=== PATIENT | female | born 1985 | race Caucasian/White ===

== ENCOUNTER 2018-07-13 15:57 | Inpatient (IN) | payer BC ==
--- OUTSIDE RECORDS SUMMARY | 2018-07-13 15:58 | XMS REPORT ---
:1985 Author Organization eClinicalWorks Care Team Providers Name Role Phone Wild Baltazar Provider Role Unavailable Allergies No Known Allergies Problems No Known Problems Medications Medication Code Code Instructions Start End Status Dosage System Date Date Bill Artisedenilson [facility] 37391832685 10-0.6-0.4-200 Jan 19, Active 1 capsule MG Orally Once a 2017 Results No Known Results Summary Purpose eClinicalWorks Submission
--- OUTSIDE RECORDS SUMMARY | 2018-07-13 15:58 | XMS REPORT ---
:1985 Author Organization eClinicalWorks Care Team Providers Name Role Phone Wild Baltazar Provider Role Unavailable Allergies No Known Allergies Problems Problem Type Condition Code Onset Dates Condition Status Problem History of pre-eclampsia in prior O09.299 Active , currently Problem Encounter for supervision of other Z34.82 Active normal in second trimester Problem Needs flu shot Z23 Active Assessment History of pre-eclampsia in prior O09.299 Active , currently Assessment Needs flu shot Z23 Active Assessment Encounter for supervision of other Z34.82 Active normal in second trimester Medications Medication Code Code Instructions Start End Status Dosage System Date Date Prenate Steffedenilson [facility] 72182241399 10-0.6-0.4-200 Jan 19, Active 1 capsule MG Orally Once a [address] [facility] 73748601162 25 MG Orally Active 1 tablet Once a day Results No Known Results Immunizations Vaccine Administration Date Afluria Mar 22, 2018 Summary Purpose eClinicalWorks Submission
--- OUTSIDE RECORDS SUMMARY | 2018-07-13 15:58 | XMS REPORT ---
:1985 Author Organization eClinicalWorks Care Team Providers Name Role Phone Wild Baltazar Provider Role Unavailable Allergies, Adverse Reactions, Alerts Substance Reaction Event Type Nickel Info Not Available Non Drug Allergy Problems Problem Type Condition Code Onset Dates Condition Status Problem Encounter for supervision of other Z34.82 Active normal in second trimester Problem History of pre-eclampsia in prior O09.299 Active , currently Assessment Encounter for supervision of other Z34.82 Active normal in second trimester Assessment History of pre-eclampsia in prior O09.299 Active , currently Medications Medication Code Code Instructions Start End Status Dosage System Date Date Zoloft [facility] 37607287629 25 MG Orally Active 1 tablet Once a day Prenate Lea [facility] 17927947777 10-0.6-0.4-200 Jan 19, Active 1 capsule MG Orally Once a 2017 day Results No Known Results Summary Purpose eClinicalWorks Submission
--- OUTSIDE RECORDS SUMMARY | 2018-07-13 15:58 | XMS REPORT ---
:1985 Author Organization eClinicalWorks Care Team Providers Name Role Phone Wild Baltazar Provider Role Unavailable Allergies, Adverse Reactions, Alerts Substance Reaction Event Type Nickel Info Not Available Non Drug Allergy Problems Problem Type Condition Code Onset Dates Condition Status Assessment Encounter for supervision of other Z34.81 Active normal in first trimester Assessment Amenorrhea N91.2 Active Assessment Encounter for supervision of Z34.91 Active low-risk in first trimester Assessment Encounter to determine O36.80X0 Active viability of , single or unspecified fetus Medications Medication Code System Code Instructions Start Date End Date Status Dosage Zoloft [facility] 33968988860 25 MG Orally Once Active 1 tablet a day Results Name Result Date Reference Range Unit Abnormality Flag URINALYSIS AUTO W/O SCOPE (46734) ----NIT neg 20180116 ----URO 0.2 20180116 ----PROTEIN neg 20180116 ----pH 7.0 20180116 ----BLO neg 20180116 ----GLUCOSE neg 20180116 ----HARRY neg 20180116 ----BILIRUBIN neg 20180116 ----KETONES neg 20180116 ----SPECIFIC GRAVITY 1.015 20180116 Summary Purpose eClinicalWorks Submission
--- OUTSIDE RECORDS SUMMARY | 2018-07-13 15:58 | XMS REPORT ---
:1985 Author Organization [employer]ClinicalLinkedwith Care Team Providers Name Role Phone Wild Baltazar Provider Role Unavailable Allergies No Known Allergies Problems Problem Type Condition Code Onset Dates Condition Status Problem Encounter for supervision of other Z34.82 Active normal in second trimester Problem History of pre-eclampsia in prior O09.299 Active , currently Medications No Known Medications Results No Known Results Summary Purpose [facility] Submission
--- OUTSIDE RECORDS SUMMARY | 2018-07-13 15:59 | XMS REPORT ---
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.29 Active affecting fetus Assessment Encounter for supervision of other Z34.83 Active normal in third trimester Assessment History of pre-eclampsia in prior O09.299 Active , currently Problem Encounter for supervision of other Z34.82 Active normal , second trimester Problem Placenta succenturiate lobe P02.29 Active affecting fetus Problem Encounter for supervision of other Z34.83 Active normal in third trimester Problem Encounter for supervision of other Z34.82 Active normal in second trimester Problem Needs flu shot Z23 Active Problem History of pre-eclampsia in prior O09.299 Active , currently Medications Medication Code Code Instructions Start End Status Dosage System Date Date Zoloft [facility] 42963553369 25 MG Orally Active 1 tablet Once a day Prenate Lea [facility] 25570362331 10-0.6-0.4-200 Jan 19, Active 1 capsule MG Orally Once a 2017 day Results No Known Results Summary Purpose eClinicalWorks Submission
--- OUTSIDE RECORDS SUMMARY | 2018-07-13 15:59 | XMS REPORT ---
[...] End Status Dosage System Date Date Prenate Lea [facility] [id number] 10-0.6-0.4-200 Jan 19, Active 1 capsule MG Orally Once a 2017 day Zoloft [facility] [place] 29399306634 25 MG Orally Active 1 tablet Once a day Results No Known Results Summary Purpose eClinicalWorks Submission
--- OUTSIDE RECORDS SUMMARY | 2018-07-13 15:59 | XMS REPORT ---
:1985 Author Organization eClinicalWorks Care Team Providers Name Role Phone Wild Baltazar Provider Role Unavailable Allergies No Known Allergies Problems Problem Type Condition Code Onset Dates Condition Status Assessment Encounter for supervision of other Z34.82 Active normal , second trimester Problem Encounter for supervision of other [...] Medications Results No Known Results Summary Purpose [facility] Submission
--- OUTSIDE RECORDS SUMMARY | 2018-07-13 15:59 | XMS REPORT ---
[...] Medications Results No Known Results Summary Purpose [facility] Submission
--- OUTSIDE RECORDS SUMMARY | 2018-07-13 15:59 | XMS REPORT ---
[...] Medications Results No Known Results Summary Purpose eClinicalWorks Submission
--- NOTE | 2018-07-13 18:07 | RAD REPORT ---
EXAM DESCRIPTION: US - Biophysical Profile - 07/13/2018 5:57 pm CLINICAL HISTORY: COMPARISON: June 28, 2018 FINDINGS: Single live intrauterine is in cephalic presentation. Cervix measures 3.1 centimeters. Cardiac activity 151 beats per minute. Biophysical profile tone 2 Movement 2 Breathing 2 Amniotic fluid 2 Amniotic fluid index equals 8 cm (6.6-27). Largest pocket of fluid 3.4 centimeters. Amniotic fluid is lower limits of normal IMPRESSION: Normal biophysical profile 8 of 8
[2018-07-13] MEDS ORDERED: METHYLERGONOVINE 0.2MG/ML AMP IM PRN (18:29)
[2018-07-13] MEDS ORDERED: Ringers Lactate 1,000 ML IV PRN (18:29)
[2018-07-13] MEDS ORDERED: CARBOPROST TROME 250 MCG/ML IM PRN (18:29)
[2018-07-13 18:38] VITALS: BMI 27.1
[2018-07-13 18:46] LABS: RPR Titer ND
[2018-07-13 18:52] LABS: Absolute Lymphocytes (CBC) 2.8 K/uL (0.7-4.9); Absolute Monocytes 0.7 K/uL (0.1-1.3); Absolute Neutrophil 3.8 K/uL (1.8-8.0); Basophils % 0.5 % (0-1.3); Eosinophils % 0.4 % (0-4.4); Lymphocytes % 38.2 % (15.3-44.8); MPV 10.4 fL (7.6-11.3); RBC Red Blood Cell Count 4.55 M/uL (3.86-4.86)
[2018-07-13] MEDS ORDERED: OXYTOCIN/LR 20 UNIT/1,000 ML BAG IV SCH (19:00)
[2018-07-13] MEDS ORDERED: Ringers Lactate 1,000 ML IV SCH (19:00)
[2018-07-13] MEDS ORDERED: FENTANYL CITR 100 MCG/2 ML IV ONE (19:54)
[2018-07-13] MEDS ORDERED: ROPIVACAINE HCL 100 ML IV PRN (19:54)
[2018-07-13] MEDS ORDERED: ROPIVACAINE HCL 0.2% 20ML AMP SQ ONE (19:58)
[2018-07-13] MEDS ORDERED: PROMETHAZINE 25 MG/ML VIAL IV PRN (22:36)
[2018-07-13 22:43] LABS: RPR (Rapid Plasma Reagin) NON-REACT (NON-REACT)
[2018-07-13] MEDS ORDERED: LIDOCAINE 2% INJ, 20 mL 20 ML ONE (23:21)
[2018-07-13] MEDS ORDERED: ACETAMINOPHEN 500 MG TAB PO PRN (23:26)
[2018-07-13] MEDS ORDERED: DOCUSATE NA/SENNA CONC 1 TAB PO PRN (23:26)
[2018-07-13] MEDS ORDERED: BISACODYL 10 MG RECTAL SUPP RECT PRN (23:26)
[2018-07-13] MEDS ORDERED: ONDANSETRON 4 MG (ODT) TAB PO PRN (23:26)
[2018-07-13] MEDS ORDERED: Oxycodone HCl/Acetaminophen 1 TAB TAB PO PRN (23:26)
[2018-07-13] MEDS ORDERED: METHYLERGONOVINE 0.2 MG TAB PO PRN (23:26)
--- NOTE | 2018-07-13 23:35 | P.OP ---
Date of Service: 07/13/18 Findings and Operative Technique Patient delivered a viable female in cephalic presentation on 07/13/17 at 23:05. Infant was delivered over a midline episiotony and was noted to have a nuchal cord x1. Nuchal was manually reduced. Cord was clamped and cut and infant was placed on mother's abdomen for skin to skin bonding. Attention was then turned to the placenta. Cord blood was obtained. Placenta was then delivered with gentle traction. Placenta was then examined and accessory lobe was present. Uterus was then massaged and found to be firm. Attention was then turned to the episiotomy which was repaired with a 2.0 vicryl in usual fashion and was noted to be a first degree. Patient tolerated well. APGARS were 8/9. Weight was 5 lb 4 ounces. First stage of labor was 8 hours and 2 minutes. Second stage was 7 minutes. Both mom and baby are doing well.
--- NOTE | 2018-07-14 05:04 | HP ---
Date of Admission: 07/13/2018 History Of Present Illness: Gustabo is a 32-year-old 2, para 1-0-0-1, who presents to labor and delivery at 36 weeks and 6 days' gestation with spontaneous rupture of membranes. The patient was a t lunch today with one of her friends; and then around 3:15, she felt a gush of fluid from her vagina . She thought that she may have to go use the bathroom and that it was only urine; however, it evan nued to leak. She then presented to Labor and Delivery. Upon initial assessment, the Nitrazine test was negative. Therefore, an ultrasound was ordered. Ultrasound revealed an JAVIER of 8. The patient last had an ultrasound on June 28, at which time the JAVIER was 9.8; however, Nitrazine test was th en repeated; and at that point, it was positive, and there was also fluid noted within the vaginal va ult. She is 1 to 2 cm dilated, 50% effaced, -3 station. The patient has obtained care with me, beginning at 11 weeks' gestation. She has been compliant with all visits. The patient has a history of preeclampsia in her last . Therefore, she has been seen by M. MFM plac ed her on baby aspirin. She just completed baby aspirin last week. They also found that on her ultr asound, the placenta was found to have an accessory lobe. We will assess for this when the baby is b orn as well as a velamentous cord insertion. Majority of the placenta is anterior, and there is post erior succenturiate lobe. The patient is Rh positive. GBS swab was done on July 05. It was ne guido. She received her Tdap vaccine in June 2016. Glucose screen was done and was found to be elevated. A 3-hour glucose test was then done and was negative. Noninvasive testing reveal ed low-risk female . She is rubella immune, varicella immune. Past Medical History: Negative. Past Surgical History: Negative. Family History: Significant for diabetes, hypertension, heart disease, high cholesterol, and anxiety . Social History: She is . Denies tobacco, alcohol, or drug use. Physical Examination: Vital Signs: On admission, blood pressure of 122/91, pulse of 89, respirations 18, and the patient i s afebrile. General: The patient is resting in bed, tearful. Head and Neck: Normocephalic and atraumatic. Heart: Regular rate and rhythm. Respiratory: Symmetric, nonlabored breathing. Abdomen: Gravid. Bilateral Lower Extremities: No clubbing, cyanosis, or edema. Vaginal Examination: Normal external female genitalia. Vagina is pink, moist. Normal rugae. Clear fluid noted within the vaginal vault. Cervix examined and noted to be 1 to 2 cm dilated, 50% efface d, -3 station, vertex presentation. Assessment And Plan: Gustabo is a 32-year-old 2, para 1-0-0-1, at 36 weeks and 6 days' gestatio n with spontaneous rupture of membranes. Pitocin will be started for labor augmentation. Her prenat al care is complicated by history of prior preeclampsia. With this , she has a velamentous cord and accessory lobe on her placenta. She has completed low-dose baby aspirin for this . Currently, is not exhibiting signs of preeclampsia. We will continue to monitor. Continuous -maternal monitoring will be performed. The patient may receive epidural at her request. GBS is neg ative. No penicillin is needed. /SUSANNE Voice ID: [id number]
[2018-07-14 06:33] LABS: Absolute Lymphocytes (CBC) 2.9 K/uL (0.7-4.9); Absolute Monocytes 1.3 K/uL (0.1-1.3); Absolute Neutrophil 9.3 K/uL (1.8-8.0); Basophils % 0.2 % (0-1.3); Eosinophils % 0.2 % (0-4.4); Hematocrit 35.6 % (36.0-45.0); Lymphocytes % 21.3 % (15.3-44.8); Monocytes % 9.5 % (3.3-12.3); RBC Red Blood Cell Count 4.14 M/uL (3.86-4.86)
--- NOTE | 2018-07-14 16:20 | P.PN ---
Date of Service: 07/14/18 Patient is doing well s/p vaginal delivery last night. She is not in any pain. She is tolerating a regular diet. She is bonding well with the baby. She denies any issues. She is breast feeding. Selected Entries 07/14/18 08:00 Temperature 98.4 F Pulse Rate 78 Respiratory 18 Rate Blood Pressure 129/85 Pain Level 0 Laboratory Tests 07/13/18 07/14/18 18:20 06:16 WBC 7.3 13.5 H D Hgb 13.1 11.6 L Hct 39.0 35.6 L Plt Count 208 192 32 y/o s/p vaginal delivery and episiotomy. Patient is doing well. Routine care. Plan for discharge home tomorrow.
[2018-07-14] MEDS: IBUPROFEN 200 MG TAB PO PRN (16:47)
[2018-07-15 09:32] VITALS: BP 131/91; TEMP 98
[2018-07-15] MEDS: IBUPROFEN 200 MG TAB PO PRN (10:30)
--- NOTE | 2018-07-15 14:33 | P.DS ---
Admission Date: 07/13/18 Discharge Date: 07/15/18 Disposition: ROUTINE DISCHARGE Discharge Condition: GOOD Brief History of Present Illness: See H&P Hospital Course: Patient did well following delivery. Her pain has been well controlled. She has been bonding well with the baby. She is breast feeding. She is passing gas and is anxious about bowel movements. Recommended stool softener. Patient denies fever or chills. Vital Signs/Physical Exam: Temp Pulse Resp BP Pulse Ox 98.0 F 66 18 131/91 H 07/15/18 09:25 07/15/18 09:25 07/15/18 09:25 07/15/18 09:25 General: Alert, In no apparent distress HEENT: Atraumatic Neck: Supple Cardiovascular: No edema, Normal pulses Gastrointestinal: Soft and benign (fundus firm palpable beneath umbilicus) Musculoskeletal: No clubbing, No swelling Integumentary: No rashes Neurological: Normal gait, Normal speech Laboratory Data at Discharge: WBC 13.5 K/uL (4.3-10.9) H D 07/14/18 06:16 Hgb 11.6 g/dL (12.0-15.0) L 07/14/18 06:16 Hct 35.6 % (36.0-45.0) L 07/14/18 06:16 Plt Count 192 K/uL (152-406) 07/14/18 06:16 Home Medications: Cmb#95/Iron/FA/Dha [ + Dha Combo Pack] 1 tab PO DAILY 07/13/18 Diet: Regular Activity: Ad vivien Followup: Wild Baltazar DO [ACTIVE - CAN ADMIT] -
[2018-07-18 03:55] LABS: HBsAG Nonreactive (Nonreactive)
== END 2018-07-15 11:50 | disposition home or self-care (01) | DRG 807 ==
LOC: L&D 15:57 → 2ND-WC 17:58
PROVIDERS: ADMIT Student in an Organized Health Care Education/Training Program; ATTEND Student in an Organized Health Care Education/Training Program
PROC: 10E0XZZ Delivery of Products of Conception, External Approach (ICD-10-PCS; principal; 2018-07-13)
PROC: 0W8NXZZ Division of Female Perineum, External Approach (ICD-10-PCS; 2018-07-13)
DX: O69.81X0 Labor and delivery complicated by cord around neck, without compression, not applicable or unspecified (principal); Z37.0 Single live birth; O43.193 Other malformation of placenta, third trimester; Z3A.36 36 weeks gestation of pregnancy
CPT/HCPCS: 36415; 76819; 85025; 86592; 86850; 86900; 86901; 87340; 88307; 99218; J2210; J2590; J2795; J3010